=== PATIENT | male | born 1950 | race Hispanic/Latino ===

== ENCOUNTER 2018-01-09 05:48 | Inpatient (IN) | payer MEDICARE, BC ==
[2018-01-09] MEDS: Lidocaine 2% Jelly (Uro-Jet) ONE ×2 (07:50→08:35)
[2018-01-09] MEDS: cefTRIAXone IV 1 gm in Dextros 50 ML IVPB ONE ×2 (07:51→08:28)
[2018-01-09] MEDS ORDERED: Midazolam 2 MG/2 ML VIAL ONE (08:19)
[2018-01-09] MEDS ORDERED: Propofol 10 mg/ml Inj (20 ML) ONE (08:20)
[2018-01-09] MEDS ORDERED: ePHEDrine 50 mg/ml Inj ONE (09:09)
--- NOTE | 2018-01-09 09:33 | PCM.SURG1 ---
Surgeon's Initial Post Op Note - Surgeon's Notes Surgeon: Eliseo Gustafson Surgical Training Specialist: none Type of Anesthesia: General LMA Pre-Operative Diagnosis: retention. prostate ca Operative Findings: same Post-Operative Diagnosis: same Operation Performed: cysto. TURP Specimen/Specimens Removed: urine, prostate Estimated Blood Loss: EBL {In ML}: 100 Blood Products Given: N/A Post-Op Condition: Good Date of Surgery/Procedure: 01/09/18 Time of Surgery/Procedure: 09:20
[2018-01-09] MEDS ORDERED: HYDROmorphone 0.5 mg/0.5 ml ISec IVP PRN (09:39)
--- NOTE | 2018-01-09 10:16 | CP.PCM.HP ---
<Laurel Ribeiro - Last Filed: 01/09/18 14:45> History of Present Illness - History of Present Illness History of Present Illness: HPI: 67 year old male with past medical history of HTN and prostate CA status post TURP with Dr. Trista Gustafson. He was worked up by Dr. Gustafson for elevated PSA, underwent prostate biopsy 5 months ago, and was diagnosed with prostate cancer. He had a TURP performed today in preparation for radiation therapy. He has not undergone chemotherapy. He was last seen in the office by Dr. Gustafson about 1 month ago. He reports a 5 month history of night sweats and 10 pound weight gain over 5 months. He denies chest pain, palpitations, dyspnea, cough, abdominal pain, nausea, vomiting, diarrhea or constipation. He denies dysuria, hematuria, hesitancy, dribbling, or changes to urine flow prior to today's procedure. PMD: Dr. Patrick Gillis Urologist: Dr. Trista Gutsafson Past medical history: HTN, Prostate Cancer (diagnosed 09/2017) Past surgical history: right ankle deltoid tendon repair, right knee arthroscopy , right shoulder arthroscopy, prostate biopsy (09/2017) Medications: Spoke with office of patient's PMD Dr. Gillis and confirmed medications: metoprolol succinate 25mg daily, Cialis 10mg daily, aspirin 81mg daily Allergies: NKDA Family history: father has history of stomach cancer; mother has history of breast and kidney cancer; sister has history of pancreatic cancer; no known familial cardiac history; no known familial history of colon or prostate cancer Social history: former smoker, 20 pack-year history, quit 15 years ago; two 8 oz glass wine daily; marijuana use "once in a while"; retired, former industrial concrete plant laborer; lives with . Present on Admission - Present on Admission Any Indicators Present on Admission: No Review of Systems - Constitutional Constitutional: Night Sweats, Weight Gain. absent: Chills, Fever, Headache - EENT Ears: absent: Dizziness - Cardiovascular Cardiovascular: absent: Chest Pain, Dyspnea, Palpitations, Pedal Edema, Syncope - Respiratory Respiratory: absent: Dyspnea - Gastrointestinal Gastrointestinal: absent: Abdominal Pain, Constipation, Diarrhea, Nausea, Vomiting - Genitourinary Genitourinary: absent: Change in Urinary Stream, Difficulty Urinating, Dysuria, Hematuria, Urinary Frequency, Urinary Hesitance, Urinary Urgency - Neurological Neurological: absent: Dizziness, Headaches, Syncope - Endocrine Endocrine: absent: Palpitations Past Patient History - Past Medical History & Family History Past Medical History?: Yes - Past Social History Smoking Status: Never Smoked - CARDIAC Hx Cardiac Disorders: Yes Hx Hypertension: Yes - HEMATOLOGICAL/ONCOLOGICAL Hx Blood Disorders: Yes Hx Cancer: Yes (PROSTATE CANCER) - MUSCULOSKELETAL/RHEUMATOLOGICAL Hx Musculoskeletal Disorders: Yes Hx Arthritis: Yes ("JOINT PAIN") Other/Comment: HX: "RIGHT SHOULDER TENDON INJURY". HX: "RIGHT KNEE TEAR" - GASTROINTESTINAL Hx Gastrointestinal Disorders: Yes - GENITOURINARY/GYNECOLOGICAL Hx Genitourinary Disorders: Yes Hx Prostate Cancer: Yes Other/Comment: RETENTION - SURGICAL HISTORY Hx Surgeries: Yes Hx Arthroscopy: Yes Other/Comment: HX: PROSTATE BIOPSY. HX: RIGHT SHOULDER ARTHROSCOPIC REPAIR OF TENDON. HX; RIGHT KNEE ARTHROSCOPIC SURGERY - ANESTHESIA Hx Anesthesia: Yes Hx Anesthesia Reactions: No Hx Malignant Hyperthermia: No Has any member of the family had a problem w/ anesthesia?: No Meds Allergies/Adverse Reactions: Allergies Allergy/AdvReac Type Severity Reaction Status Date / Time No Known Allergies Allergy Verified 01/08/18 12:31 Physical Exam - Constitutional Appears: Non-toxic, No Acute Distress - Head Exam Head Exam: ATRAUMATIC, NORMAL INSPECTION - Eye Exam Eye Exam: EOMI, Normal appearance. absent: Scleral icterus Pupil Exam: NORMAL ACCOMODATION - ENT Exam ENT Exam: Mucous Membranes Moist - Respiratory Exam Respiratory Exam: Clear to Auscultation Bilateral, NORMAL BREATHING PATTERN - Cardiovascular Exam Cardiovascular Exam: Bradycardia, +S1, +S2. absent: Diastolic murmur, Gallop, Systolic Murmur - GI/Abdominal Exam GI & Abdominal Exam: Normal Bowel Sounds, Soft. absent: Tenderness - Exam Additional comments: Whipple in place - Extremities Exam Extremities exam: Positive for: joint swelling (right ankle swelling), pedal pulses present. Negative for: pedal edema - Neurological Exam Neurological exam: Alert, Oriented x3 - Psychiatric Exam Psychiatric exam: Normal Affect, Normal Mood - Skin Skin Exam: Normal Color Results - Vital Signs Recent Vital Signs: Last Vital Signs Temp 97.7 F 01/09/18 09:29 Pulse 64 01/09/18 09:29 Resp 16 01/09/18 09:29 BP 124/80 01/09/18 09:29 Pulse Ox 99 01/09/18 09:29 Assessment & Plan - Assessment and Plan (Free Text) Assessment: 1.) History of Prostate Cancer s/p TURP 01/09/18 - Urology Consult: Dr. Trista Medina --> help appreciated - Whipple catheter in place - Bladder irrigation - Monitor urine output - Medications: * Ceftriaxone 1gm IV daily * LR @150cc/hr * Percocet 1 tablet q4 prn * Zofran 4mg IVP PRN * Colace 100mg po TID 2. History of HTN - Continue home medication: metoprolol succinate 25mg PO daily 3.) History of Erectile Dysfunction - hold home medication - Cialis 4. Prophylaxis - Hold aspirin 81mg, last taken 1 day ago, per Dr. Gustafson it will be restarted as an outpatient - Pepcid 20mg bid - Florastor 250mg po daily - SCDs Case discussed with Dr. Malvin Ribeiro PGY-1 <Zoila Coombs V - Last Filed: 01/09/18 16:55> Results - Vital Signs Recent Vital Signs: Last Vital Signs Temp 98.3 F 01/09/18 15:00 Pulse 62 01/09/18 15:00 Resp 20 01/09/18 15:00 BP 110/72 01/09/18 15:00 Pulse Ox 96 01/09/18 15:00 Attending/Attestation - Attestation I have personally seen and examined this patient.: Yes I have fully participated in the care of the patient.: Yes I have reviewed all pertinent clinical information: Yes Notes (Text): Patient seen, examined and case discussed with medical assisting instructor. Patient seen on approximately 12:03PM with family at bedside. Patient underwent TURP this morning with Dr. Eliseo Gustafson. Patient denies any pain currently. He is seen tolerating his lunch. Will hold aspirin at this time and his Cialis Will continue anti-hypertensive medications Discussed admitting orders with resident. Assessment/Plan 1.) History of Prostate Cancer s/p TURP 01/09/18 * Urology Consult: Dr. Trista Medina --> help appreciated * Preoperative/intraoperative/postoperative per surgery management * Whipple catheter in place * Bladder irrigation * Monitor urine output * Medications: * Ceftriaxone 1gm IV daily * LR @150cc/hr * Tylenol 650mg PO Q 6h PRN pain * Zofran 4mg IVP Q6H PRN nausea * Colace 100mg PO TID 2. History of HTN * Continue home medication: metoprolol succinate 25mg PO daily 3.) History of Erectile Dysfunction * hold home medication - Jules 4. Prophylaxis * Hold aspirin 81mg, last taken 1 day ago, per Dr. Gustafson it will be restarted as an outpatient * Pepcid 20mg bid * Florastor 250mg po daily * SCDS * Chemical anticoagulation contraindication-->patient had recent surgical intervention this morning per surgery to determine to restart chemical anticoagulation
[2018-01-09] MEDS ORDERED: Lactated Ringer's 1,000 ML IV ONE (10:30)
[2018-01-09] MEDS ORDERED: Oxycodone/Acetaminophen 5/325 mg Tab PO ONE (14:23)
[2018-01-09] MEDS ORDERED: Oxycodone/Acetaminophen 5/325 mg Tab PO PRN (14:57)
[2018-01-09 16:08] VITALS: RESP 20
[2018-01-09] MEDS: Lactated Ringer's 1,000 ML IV SCH ×3 (16:33→23:05)
[2018-01-10 01:11] VITALS: TEMP 98.5
[2018-01-10] MEDS: Lactated Ringer's 1,000 ML IV SCH (02:50)
[2018-01-10 07:52] LABS: HEMOGLOBIN 11.9 g/dL (12.0-18.0); MEAN CELL VOLUME 87.8 fL (80.0-94.0); MEAN CORPUSCULAR HEMOGLOBIN 30.3 pg (27.0-31.0); MEAN CORPUSCULAR HGB CONC 34.6 g/dL (33.0-37.0); MEAN PLATELET VOLUME 8.3 fL (7.2-11.7); RBC 3.91 Mil/uL (4.40-5.90); RED CELL DISTRIBUTION WIDTH 13.4 % (11.5-14.5); WHITE BLOOD COUNT 7.8 K/uL (4.8-10.8)
[2018-01-10 08:16] LABS: ALB/GLOB RATIO 1.3 (1.0-2.1); ALBUMIN 3.3 g/dL (3.5-5.0); ALT/SGPT 20 U/L (21-72); AST/SGOT 23 U/L (17-59); BLOOD UREA NITROGEN 11 mg/dL (9-20); CALCIUM 8.8 mg/dl (8.6-10.4); GFR AFRICAN-AMERICAN > 60; GFR NON-AFRICAN AMERICAN > 60
[2018-01-10 08:22] VITALS: BP 139/82; PULSE 74; O2SAT 97
[2018-01-10] MEDS ORDERED: Saccharomyces Boulardi 250 mg Cap PO SCH (10:00)
[2018-01-10] MEDS ORDERED: Metoprolol Succinate 25 mg XL Tab PO SCH (10:00)
[2018-01-10] MEDS ORDERED: Metoprolol Succinate 100 mg XL Tab PO SCH (10:00)
--- NOTE | 2018-01-10 10:12 | CP.PCM.PN ---
Subjective - Date & Time of Evaluation Date of Evaluation: 01/10/18 Time of Evaluation: 10:13 - Subjective Subjective: Progress Note Patient seen and examined at bedside. No acute events overnight. Patient states he is doing well, has seen a spot of blood on his bedsheets and has seen some blood after trying to have a bowel movement. Patient states he took Colace and is waiting for the bowel movement. Patient denies fever, chills, nausea, vomiting, diarrhea. Objective - Vital Signs/Intake and Output Vital Signs (last 24 hours): Temp Pulse Resp BP Pulse Ox 98.5 F 74 20 139/82 97 01/10/18 08:00 01/10/18 08:00 01/10/18 08:00 01/10/18 08:00 01/10/18 08:00 Intake and Output: 01/10/18 01/10/18 06:59 18:59 Intake Total 5610 1380 Output Total 750 Balance 5610 630 - Medications Medications: Current Medications Acetaminophen (Tylenol 325mg Tab) 650 mg PO Q6 PRN PRN Reason: Pain, moderate (4-7) Last Admin: 01/10/18 04:57 Dose: 650 mg Docusate Sodium (Colace) 100 mg PO TID [facility] Last Admin: 01/09/18 17:17 Dose: 100 mg Famotidine (Pepcid) 20 mg PO BID [facility] Last Admin: 01/09/18 17:17 Dose: 20 mg Ceftriaxone Sodium 1 gm/ (Sodium Chloride) 100 mls @ 200 mls/hr IVPB DAILY [facility] PRN Reason: Protocol Lactated Ringer's (Lactated Ringer's) 1,000 mls @ 150 mls/hr IV .Q6H40M [facility] Last Admin: 01/10/18 02:50 Dose: 150 mls/hr Metoprolol Succinate (Toprol Xl) 25 mg PO DAILY [facility] Ondansetron HCl (Zofran Inj) 4 mg IVP Q6H PRN PRN Reason: Nausea/Vomiting Saccharomyces Boulardii (Florastor) 250 mg PO DAILY [facility] - Labs Labs: 01/10/18 07:43 01/10/18 07:43 - Additional Findings Additional findings: - Constitutional Appears: Non-toxic, No Acute Distress - Head Exam Head Exam: ATRAUMATIC, NORMAL INSPECTION - Eye Exam Eye Exam: EOMI, Normal appearance. absent: Scleral icterus Pupil Exam: NORMAL ACCOMODATION - ENT Exam ENT Exam: Mucous Membranes Moist - Respiratory Exam Respiratory Exam: Clear to Auscultation Bilateral, NORMAL BREATHING PATTERN - Cardiovascular Exam Cardiovascular Exam: Bradycardia, +S1, +S2. absent: Diastolic murmur, Gallop, Systolic Murmur - GI/Abdominal Exam GI & Abdominal Exam: Normal Bowel Sounds, Soft. absent: Tenderness - Exam Additional comments: Whipple in place, draining yellow urine. no blood clots noted. CBI stopped. - Extremities Exam Extremities exam: Positive for: joint swelling (right ankle swelling), pedal pulses present. Negative for: pedal edema - Neurological Exam Neurological exam: Alert, Oriented x3 - Psychiatric Exam Psychiatric exam: Normal Affect, Normal Mood - Skin Skin Exam: Normal Color Assessment and Plan - Assessment and Plan (Free Text) Assessment: 1.) History of Prostate Cancer s/p TURP POD #1 01/09/18 - Urology Consult: Dr. Trista Medina - Whipple catheter in place - Bladder irrigation, discontinued - Monitor urine output - Medications: * Ceftriaxone 1gm IV daily * LR @150cc/hr * Percocet 1 tablet q6H prn, severe pain * Tylenol 650mg PO PRN moderate pain * Zofran 4mg IVP PRN * Colace 100mg po TID 2. History of HTN - Continue home medication: metoprolol succinate 25mg PO daily 3.) History of Erectile Dysfunction - hold home medication - Cialis 4.) Right ankle surgery with occasional swelling PT/OT eval and treat for right ankle pain and gait instability 5.) Prophylaxis - Hold aspirin 81mg, last taken 1 day ago, per Dr. Gustafson it will be restarted as an outpatient - Pepcid 20mg bid - Florastor 250mg po daily - SCDs Case discussed with Dr. Malvin Rivera, DO PGY1
[2018-01-10] MEDS ORDERED: POLYETHYLENE GLYCOL 3350 17 GM/Dose PACKET PO ONE (10:38)
[2018-01-10] MEDS ORDERED: Oxycodone/Acetaminophen 5/325 mg Tab PO PRN (10:39)
--- NOTE | 2018-01-10 15:53 | CP.PCM.DIS ---
<NicoleCharleen - Last Filed: 01/10/18 16:01> Provider - Provider Date of Admission: 01/09/18 05:48 Attending physician: Zoila Coombs DO Consults: Dr. Eliseo Gustafson Time Spent in preparation of Discharge (in minutes): 35 Diagnosis - Discharge Diagnosis (1) History of prostate cancer Status: Chronic Comment: s/p TURP (2) S/P TURP (status post transurethral resection of prostate) Status: Resolved Hospital Course - Lab Results Lab Results: Micro Results 01/09/18 Unknown Urine,Catheterized Urine Culture - Preliminary No growth. Most Recent Lab Values WBC 7.8 K/uL (4.8-10.8) 01/10/18 07:43 RBC 3.91 Mil/uL (4.40-5.90) L 01/10/18 07:43 Hgb 11.9 g/dL (12.0-18.0) L 01/10/18 07:43 Hct 34.3 % (35.0-51.0) L 01/10/18 07:43 MCV 87.8 fL (80.0-94.0) 01/10/18 07:43 MCH 30.3 pg (27.0-31.0) 01/10/18 07:43 MCHC 34.6 g/dL (33.0-37.0) 01/10/18 07:43 RDW 13.4 % (11.5-14.5) 01/10/18 07:43 Plt Count 166 K/uL (130-400) 01/10/18 07:43 MPV 8.3 fL (7.2-11.7) 01/10/18 07:43 Sodium 140 mmol/L (132-148) 01/10/18 07:43 Potassium 4.1 mmol/L (3.6-5.2) 01/10/18 07:43 Chloride 102 mmol/L (98-107) 01/10/18 07:43 Carbon Dioxide 30 mmol/L (22-30) 01/10/18 07:43 Anion Gap 12 (10-20) 01/10/18 07:43 BUN 11 mg/dL (9-20) 01/10/18 07:43 Creatinine 0.9 mg/dL (0.8-1.5) 01/10/18 07:43 Est GFR ( Amer) > 60 01/10/18 07:43 Est GFR (Non-Af Amer) > 60 01/10/18 07:43 Random Glucose 92 mg/dL (75-110) 01/10/18 07:43 Calcium 8.8 mg/dl (8.6-10.4) 01/10/18 07:43 Phosphorus 3.8 mg/dL (2.5-4.5) 01/10/18 07:43 Magnesium 1.8 mg/dL (1.6-2.3) 01/10/18 07:43 Total Bilirubin 1.0 mg/dL (0.2-1.3) 01/10/18 07:43 AST 23 U/L (17-59) 01/10/18 07:43 ALT 20 U/L (21-72) L 01/10/18 07:43 Alkaline Phosphatase 44 U/L (38-126) 01/10/18 07:43 Total Protein 5.9 g/dL (6.3-8.3) L 01/10/18 07:43 Albumin 3.3 g/dL (3.5-5.0) L 01/10/18 07:43 Globulin 2.6 gm/dL (2.2-3.9) 01/10/18 07:43 Albumin/Globulin Ratio 1.3 (1.0-2.1) 01/10/18 07:43 - Hospital Course Hospital Course: HPI: 67 year old male with past medical history of HTN and prostate CA status post TURP with Dr. Trista Gustafson. He was worked up by Dr. Murcia for elevated PSA , underwent prostate biopsy 5 months ago, and was diagnosed with prostate cancer. He had a TURP performed today in preparation for radiation therapy. He has not undergone chemotherapy. He was last seen in the office by Dr. Gustafson about 1 month ago. He reports a 5 month history of night sweats and 10 pound weight gain over 5 months. He denies chest pain, palpitations, dyspnea, cough, abdominal pain, nausea, vomiting, diarrhea or constipation. He denies dysuria, hematuria, hesitancy, dribbling, or changes to urine flow prior to today's procedure. Hospital Course: Patient seen and examined at bedside. The day after TURP. No acute events overnight. Patient states he is doing well, has seen a spot of blood on his bedsheets and has seen some blood after trying to have a bowel movement. Patient states he took Colace and is waiting for the bowel movement. Patient states he noted blood when straining for defecation. Patient denies fever, chills, nausea, vomiting, diarrhea. Patient discharged on Levaquin 500mg per Dr. Gustafson Percocet 5/[address] Gustafson Colace 100mg PO TID PRN constipation Florastor 250mg PO QD with instructions to keep kim, maintain kim care. leg bag attached to follow up with Dr. Gustafson in his office for further workup and management. - Date & Time of H&P Date of H&P: 01/10/18 Time of H&P: 15:52 Discharge Exam - Head Exam Head Exam: ATRAUMATIC, NORMAL INSPECTION - Eye Exam Eye Exam: EOMI, Normal appearance Pupil Exam: NORMAL ACCOMODATION - Respiratory Exam Respiratory Exam: Clear to PA & Lateral, NORMAL BREATHING PATTERN, UNREMARKABLE. absent: Accessory Muscle Use - Cardiovascular Exam Cardiovascular Exam: REGULAR RHYTHM, +S1, +S2. absent: Bradycardia, Tachycardia - GI/Abdominal Exam GI & Abdominal Exam: Normal Bowel Sounds, Soft. absent: Diminished Bowel Sounds - Exam Additional comments: kim in place attached to leg bag - Extremities Exam Extremities exam: full ROM, normal inspection - Back Exam Back exam: FULL ROM, NORMAL INSPECTION. absent: paraspinal tenderness - Neurological Exam Neurological exam: Alert, CN II-XII Intact - Psychiatric Exam Psychiatric exam: Normal Affect, Normal Mood - Skin Skin Exam: Dry, Normal Color, Warm Discharge Plan - Discharge Medications Prescriptions: Docusate [Colace] 100 mg PO TID #15 cap oxyCODONE/Acetaminophen [Percocet 5/325 mg Tab] 1 tab PO Q6H PRN #20 tab PRN Reason: Pain, Severe (8-10) Saccharomyces Boulardi [Florastor] 250 mg PO DAILY 7 Days cap - Follow Up Plan Condition: FAIR Disposition: HOME/ ROUTINE Instructions: Isabella grandei, How to Care for Your Kim Catheter, Male, Levofloxacin (Systemic), Docusate, Oxycodone and Acetaminophen, Urinary Retention (DC) Additional Instructions: patient to be discharged with kim and leg bag to follow up with urology as directed by Dr. Gustafson. Please call his office for clarification. Patient to take levaquin, florastor/yogurt as probiotic, Take colace as directed for constipation Take Percocet for severe pain. Return to Emergency room if you see bright red blood, blood clots, no urine output, extreme pain. Referrals: Trista Gustafson MD [Staff Provider] - <Zoila Coombs V - Last Filed: 01/11/18 08:18> Provider - Provider Date of Admission: 01/09/18 05:48 Attending physician: Zoila Coombs, Hospital Course - Lab Results Lab Results: Micro Results 01/09/18 Unknown Urine,Catheterized Urine Culture - Preliminary No growth. Most Recent Lab Values WBC 7.8 K/uL (4.8-10.8) 01/10/18 07:43 RBC 3.91 Mil/uL (4.40-5.90) L 01/10/18 07:43 Hgb 11.9 g/dL (12.0-18.0) L 01/10/18 07:43 Hct 34.3 % (35.0-51.0) L 01/10/18 07:43 MCV 87.8 fL (80.0-94.0) 01/10/18 07:43 MCH 30.3 pg (27.0-31.0) 01/10/18 07:43 MCHC 34.6 g/dL (33.0-37.0) 01/10/18 07:43 RDW 13.4 % (11.5-14.5) 01/10/18 07:43 Plt Count 166 K/uL (130-400) 01/10/18 07:43 MPV 8.3 fL (7.2-11.7) 01/10/18 07:43 Sodium 140 mmol/L (132-148) 01/10/18 07:43 Potassium 4.1 mmol/L (3.6-5.2) 01/10/18 07:43 Chloride 102 mmol/L (98-107) 01/10/18 07:43 Carbon Dioxide 30 mmol/L (22-30) 01/10/18 07:43 Anion Gap 12 (10-20) 01/10/18 07:43 BUN 11 mg/dL (9-20) 01/10/18 07:43 Creatinine 0.9 mg/dL (0.8-1.5) 01/10/18 07:43 Est GFR ( Amer) > 60 01/10/18 07:43 Est GFR (Non-Af Amer) > 60 01/10/18 07:43 Random Glucose 92 mg/dL (75-110) 01/10/18 07:43 Calcium 8.8 mg/dl (8.6-10.4) 01/10/18 07:43 Phosphorus 3.8 mg/dL (2.5-4.5) 01/10/18 07:43 Magnesium 1.8 mg/dL (1.6-2.3) 01/10/18 07:43 Total Bilirubin 1.0 mg/dL (0.2-1.3) 01/10/18 07:43 AST 23 U/L (17-59) 01/10/18 07:43 ALT 20 U/L (21-72) L 01/10/18 07:43 Alkaline Phosphatase 44 U/L (38-126) 01/10/18 07:43 Total Protein 5.9 g/dL (6.3-8.3) L 01/10/18 07:43 Albumin 3.3 g/dL (3.5-5.0) L 01/10/18 07:43 Globulin 2.6 gm/dL (2.2-3.9) 01/10/18 07:43 Albumin/Globulin Ratio 1.3 (1.0-2.1) 01/10/18 07:43 Attending/Attestation - Attestation I have personally seen and examined this patient.: Yes I have fully participated in the care of the patient.: Yes I have reviewed all pertinent clinical information, including history, physical exam and plan: Yes
--- NOTE | 2018-01-10 16:07 | OP ---
PROCEDURE DATE: 01/09/2018 PREOPERATIVE DIAGNOSES: 1. Chronic urinary retention. 2. Prostate carcinoma. POSTOPERATIVE DIAGNOSES: 1. Chronic urinary retention. 2. Prostate carcinoma. PROCEDURE: Transurethral resection of the prostate. OPERATIVE SURGEON: Trista Gustafson MD The patient received perioperative antibiotics. The patient received general anesthesia via laryngeal mask airway. The patient was placed in the lithotomy position. The patient received perioperative antibiotics. The genitalia prepped and draped sterilely. A 26-Citizen [place] continuous flow resectoscope sheath was introduced under direct vision. Urethra, prostate, and bladder were inspected. FINDINGS: The anterior urethra was normal without stricture. The prostatic urethra demonstrated mildly occlusive lateral lobe prostatic obstruction. Prostatic urethra length was 5.3 cm. There were no papillary lesions within the urethra. There was no bladder neck contracture. The bladder neck was nonocclusive. The veru was intact. The ureteral orifices were identified. There was mild to moderate bladder trabeculation. There was urinary retention with greater than 500 mL within the bladder. The bladder was noted to be somewhat floppy in its nondistended state. There was no bladder tumor. There was no bladder stone. The resectoscope was inserted. Resection of the obstructing prostatic tissue was performed. The resection was begun at the bladder neck posteriorly. Thereafter, the anterior roof tissue was resected. Subsequently, each lateral lobe was resected. Thereafter, the floor tissue was resected. Hemostasis was achieved after each session of resection. The bladder was reinspected. The ureteral orifices were intact. The veru was intact. The prostatic chips were removed using the [employer] evacuator. The resectoscope was inserted. Hemostasis was complete. The resectoscope was removed. The bladder was reinspected. Hemostasis was complete. There were no residual prostatic chips identified. The resectoscope and sheath were removed. Whipple catheter was inserted. Bladder drainage was clear with mild traction applied. The patient was returned to the supine position. The patient tolerated the procedure without complication. The patient was transferred to the PACU in satisfactory condition. Trista Gustafson MD
--- NOTE | 2018-01-10 22:32 | PCM.URO ---
Urology Progress Note - General General: No Complaints, Tolerating Diet - Subjective Abdominal Pain: Yes (mild sp discomfort) Flank Pain: No Nausea: No Vomiting: No Voiding Well: No (catheter in place) Hematuria: No Dsypnea: No Chest Pain: No Fever & Chills: No - Objective Lab Studies: Reviewed Lab Results Last 24 Hours: Laboratory Results - last 24 hr 01/10/18 01/10/18 07:43 07:43 WBC 7.8 RBC 3.91 L Hgb 11.9 L Hct 34.3 L MCV 87.8 MCH 30.3 MCHC 34.6 RDW 13.4 Plt Count 166 MPV 8.3 Sodium 140 Potassium 4.1 Chloride 102 Carbon Dioxide 30 Anion Gap 12 BUN 11 Creatinine 0.9 Est GFR ( Amer) > 60 Est GFR (Non-Af Amer) > 60 Random Glucose 92 Calcium 8.8 Phosphorus 3.8 Magnesium 1.8 Total Bilirubin 1.0 AST 23 ALT 20 L Alkaline Phosphatase 44 Total Protein 5.9 L Albumin 3.3 L Globulin 2.6 Albumin/Globulin Ratio 1.3 Intake & Output: Intake & Output 01/10/18 01/10/18 01/11/18 06:59 18:59 06:59 Intake Total 5610 2430 Output Total 1950 Balance 5610 480 Intake: Intake, IV Amount 1750 Left Antecubital 1750 Oral 360 680 Other 5250 Output: Urine 1950 Urethral (Kim) 1950 Other: # Bowel Movements 0 0 Vital Signs: Vital Signs - 24 hr 01/10/18 01/10/18 00:00 08:00 Temperature 98.5 F 98.5 F Pulse Rate 61 74 Respiratory 20 20 Rate Blood Pressure 124/74 139/82 O2 Sat by Pulse 98 97 Oximetry - Physical Exam Abdominal Exam: Soft, Non-Tender, Non-Distended Bowel Sounds: Normal Back: No CVA Tenderness Genitalia: Without Inflammation Urinary Catheter Draining Well: Yes Urine Color: Yellow Extremities: Normal: Bilateral, Calf Tenderness: Bilateral (calf or thigh tenderness) - Male Phallus: Normal Scrotum: Normal - Plan Catheter Care: Yes Discontinue Intravenous Fluids: Yes Intake & Output: Yes See Orders: Yes Additional Information: IMP: progressing well, p turp. Rec/P: kim cath to leg bag. 'hydration. Analgesics. home today. outpt f/u. discussed w pt, family, and medical staff. out - Date & Time of Note Date: 01/10/18 Time: 11:15
== END 2018-01-10 15:29 | disposition home or self-care (01) | DRG 714 ==
LOC: C.9S 05:48 → C.3T 10:23
PROVIDERS: ADMIT Hospitalist; ATTEND Hospitalist
PROC: 0VT08ZZ Resection of Prostate, Via Natural or Artificial Opening Endoscopic (ICD-10-PCS; principal; 2018-01-09 08:00)
DX: C61 Malignant neoplasm of prostate (principal); R33.8 Other retention of urine; N32.89 Other specified disorders of bladder; N52.8 Other male erectile dysfunction; I10 Essential (primary) hypertension; Z87.891 Personal history of nicotine dependence; Z80.51 Family history of malignant neoplasm of kidney; Z80.0 Family history of malignant neoplasm of digestive organs